=== PATIENT | female | born 1985 | race Two or more races ===

== ENCOUNTER 2021-12-01 11:51 | Emergency (ER) | payer BC, MEDICAID ==
[~2021-12-01] VITALS: Ht 170.2 cm; Wt 112.0 kg
[2021-12-01 11:51] VITALS: BP 129/77
== END 2021-12-01 16:28 | disposition home or self-care (01) ==
LOC: ER 11:51
DX: R07.89 Other chest pain (principal); F12.10 Cannabis abuse, uncomplicated
CPT/HCPCS: 71045; 93005